=== PATIENT | female | born 1955 | race Hispanic/Latino ===

== ENCOUNTER 2017-08-09 10:52 | Emergency (ER) | payer BC ==
[2017-08-09 11:02] VITALS: BP 164/76
[2017-08-09 14:31] LABS: Bacteria,Urine 1+ /HPF (Negative); Bilirubin,Urine NEG (Negative); Blood,Urine LG (Negative); Color,Urine Yellow (Yellow); Nitrite,Urine NEG (Negative); Urobilinogen,Urine < 2.0 mg/dL (<2.0)
[2017-08-09 14:32] LABS: RBC,Urine > 182.0 /HPF (0.0-6.0); WBC,Urine > 182.0 /HPF (0.0-6.0)
[2017-08-09] MEDS ORDERED: ROCEPHIN IM ONE (15:03)
[2017-08-09] MEDS ORDERED: XYLOCAINE 1% MPF 5 mL INFILTRATI ONE (15:03)
--- NOTE | 2017-08-09 15:21 | Emergency Department Report ---
ED Female HPI - General Chief complaint: Urogenital-Female Stated complaint: BLOOD IN URINE Time Seen by Provider: 08/09/17 14:02 Source: patient Mode of arrival: Ambulatory Limitations: No Limitations - History of Present Illness Initial comments: This is a 62-year-old female nontoxic, well nourished in appearance, no acute signs of distress presents to the ED with c/o of dysuria, polyuria and hematuria x1 week. Patient denies any back pain, shortness of breath, fever, chills, nausea, vomiting, chest pain, headache, stiff neck. Patient denies any abdominal pain or pelvic pain. Patient states allergies to sulfa and denies past medical history. MD Complaint: dysuria, other (hematuria) -: week(s) (1) Severity: mild Severity scale (0 -10): 8 Quality: burning Consistency: constant Improves with: none Worsens with: urination Are you Now?: No Associated Symptoms: dysuria, hematuria. denies: vaginal discharge, vaginal bleeding, abdominal pain, nausea/vomiting, fever/chills, headaches, loss of appetite, rash, seizure, shortness of breath, syncope, weakness - Related Data Sexually active: Yes Previous Rx's Medication Instructions Recorded Last Taken Type Nitrofurantoin [place]/M-Cryst 100 mg PO Q12HR #14 capsule 08/09/17 Unknown Rx [Macrobid CAP] Allergies Allergy/AdvReac Type Severity Reaction Status Date / Time Sulfa (Sulfonamide AdvReac Unknown Verified 08/09/17 11:02 Antibiotics) ED Review of Systems ROS: Stated complaint: BLOOD IN URINE Other details as noted in HPI Constitutional: denies: chills, fever Eyes: denies: eye pain, eye discharge, vision change ENT: denies: ear pain, throat pain Respiratory: denies: cough, shortness of breath, wheezing Cardiovascular: denies: chest pain, palpitations Endocrine: no symptoms reported Gastrointestinal: denies: abdominal pain, nausea, diarrhea Genitourinary: urgency, dysuria, frequency, hematuria. denies: discharge Musculoskeletal: denies: back pain, joint swelling, arthralgia Skin: denies: rash, lesions Neurological: denies: headache, weakness, paresthesias Psychiatric: denies: anxiety, depression Hematological/Lymphatic: denies: easy bleeding, easy bruising ED Past Medical Hx - Past Medical History Previous Medical History?: No - Surgical History Past Surgical History?: Yes Additional Surgical History: , left arm breast biopsy - Social History Smoking Status: Never Smoker Substance Use Type: Alcohol - Medications Home Medications: Home Medications Medication Instructions Recorded Confirmed Last Taken Type Nitrofurantoin [place]/M-Cryst 100 mg PO Q12HR #14 capsule 08/09/17 Unknown Rx [Macrobid CAP] ED Physical Exam - General Limitations: No Limitations General appearance: alert, in no apparent distress - Head Head exam: Present: atraumatic, normocephalic - Eye Eye exam: Present: normal appearance, PERRL Pupils: Present: normal accommodation - ENT ENT exam: Present: normal exam, normal orophraynx, mucous membranes moist, TM's normal bilaterally, normal external ear exam - Neck Neck exam: Present: normal inspection, full ROM. Absent: tenderness, meningismus, lymphadenopathy, thyromegaly - Respiratory Respiratory exam: Present: normal lung sounds bilaterally. Absent: respiratory distress, wheezes, rales, rhonchi, stridor, chest wall tenderness, accessory muscle use, decreased breath sounds, prolonged expiratory - Cardiovascular Cardiovascular Exam: Present: regular rate, normal rhythm, normal heart sounds. Absent: irregular rhythm, systolic murmur, diastolic murmur, rubs, gallop - GI/Abdominal GI/Abdominal exam: Present: soft, normal bowel sounds. Absent: distended, tenderness, guarding, rebound, rigid, diminished bowel sounds - Rectal Rectal exam: Present: deferred - Extremities Exam Extremities exam: Present: normal inspection - Back Exam Back exam: Present: normal inspection, full ROM. Absent: tenderness, CVA tenderness (R), CVA tenderness (L), muscle spasm, paraspinal tenderness, vertebral tenderness, rash noted - Neurological Exam Neurological exam: Present: alert, oriented X3, CN II-XII intact, normal gait, reflexes normal - Psychiatric Psychiatric exam: Present: normal affect, normal mood - Skin Skin exam: Present: warm, dry, intact, normal color. Absent: rash ED Course Vital Signs 08/09/17 10:57 Temperature 97.4 F L Pulse Rate 70 Respiratory 16 Rate Blood Pressure 164/76 O2 Sat by Pulse 100 Oximetry - Reevaluation(s) Reevaluation #1: 08/09/17 15:20 Patient is speaking in full sentences with no signs of distress noted. ED Medical Decision Making - Medical Decision Making This is a 62-year-old female that presents with urinary tract infection. Patient stable and was examined by me. UA obtained with elevated WBCs leukocytes and RBCs. Patient received Rocephin 1 g in the ED. Patient is discharged with Macrobid for 7 days. There is no CVA tenderness. No signs or symptoms of pyelonephritis. Patient was instructed Follow-up with a primary care doctor in 3-5 days or if symptoms worsen and continue return to emergency room as soon as possible. At time time of discharge, the patient does not seem toxic or ill in appearance. No acute signs of distress noted. Patient agrees to discharge treatment plan of care. No further questions noted by the patient. Critical care attestation.: If time is entered above; I have spent that time in minutes in the direct care of this critically ill patient, excluding procedure time. ED Disposition Clinical Impression: Urinary tract infection Qualifiers: Urinary tract infection type: site unspecified Hematuria presence: with hematuria Qualified Code(s): N39.0 - Urinary tract infection, site not specified ; R31.9 - Hematuria, unspecified; R31.9 - Hematuria, unspecified Disposition: DC-01 TO HOME OR SELFCARE Is pt being admited?: No Does the pt Need Aspirin: No Condition: Stable Instructions: Urinary Tract Infection in Women (ED), Nitrofurantoin Combination (By mouth) Additional Instructions: Follow-up with a primary care doctor in 3-5 days or if symptoms worsen and continue return to emergency room as soon as possible. Prescriptions: Nitrofurantoin [place]/M-Cryst [Macrobid CAP] 100 mg PO Q12HR #14 capsule Referrals: ANGELICA ABBOTT MD [Primary Care Provider] - 3-5 Days IMAN WALSH MD [Staff Physician] - 3-5 Days [facility] [Outside] - 3-5 Days [facility] [Outside] - 3-5 Days Forms: Work/School Release Form(ED)
== END 2017-08-09 15:00 | disposition home or self-care (01) ==
LOC: ED 10:52
DX: N39.0 Urinary tract infection, site not specified (principal); R31.9 Hematuria, unspecified; Z88.2 Allergy status to sulfonamides
CPT/HCPCS: 81001; 96372; 99283; J0696

== ENCOUNTER 2018-09-16 09:06 | Outpatient (CLI) | payer BC ==
--- NOTE | 2018-09-16 10:06 | Mammography Report ---
Bilateral mammogram: Compared to 03/06/16 and 03/28/13.. CAD study utilized. Findings: 6 glandular parenchyma bilaterally. Benign densities right and left breast without significant interval change. No microcalcification. Benign axillary nodes. Impression: Benign findings. Annual followup recommended. BI-RADS CATEGORY: 2 = Benign ACR BI-RADS MAMMOGRAPHIC CODES: 0 = Needs additional imaging evaluation; 1 = Negative; 2 = Benign; 3 = Probably benign; 4 = Suspicious; 5 = Malignant; 6 = Known biopsy-proven malignancy COMMENT: 1. Dense breast tissue, i.e., adenosis, fibrocystic changes, etc., may obscure an underlying neoplasm. 2. Approximately 10% of cancers are not detected with mammography. 3. A negative mammography report should not delay biopsy if a clinically suspicious mass is present. COMMENT: Patient follow-up letters are generated in [employer] No
== END 2018-09-16 09:07 | disposition home or self-care (01) ==
LOC: SPVWC 09:06
PROVIDERS: ATTEND Family Medicine
DX: Z12.31 Encounter for screening mammogram for malignant neoplasm of breast (principal)
CPT/HCPCS: 77067

== ENCOUNTER 2019-09-18 09:50 | Outpatient (CLI) | payer BC ==
--- NOTE | 2019-09-18 13:48 | Mammography Report ---
DIGITAL SCREENING MAMMOGRAM WITH CAD, 09/18/2019 INDICATION: Routine screening mammography. TECHNIQUE: Digital bilateral 2D mammography was obtained in the craniocaudal and mediolateral obliq ue projections. This examination was interpreted with the benefit of Computer-Aided Detection analysi s. COMPARISON: 09/16/2018 and 03/06/2016 FINDINGS: Breast Density: The breasts are heterogeneously dense, which may obscure small masses. There is no evidence of new mass, suspicious calcifications or architectural distortion in either gurinder ast. Scattered bilateral benign calcifications. Bilateral circumscribed densities are unchanged kahlil red to previous exams. IMPRESSION: No mammographic evidence of malignancy. Follow up recommendation: Routine yearly BI-RADS Category 2: Benign. A "normal" or negative report should not discourage follow up or biopsy of a clinically significant f inding. A written summary of these findings will be mailed to the patient. The patient will be entered into a mammography reporting system which will generate a reminder letter for the patient's next appointmen t at the appropriate interval. The [employer] recommends yearly mammograms starting at age 40 and continuing as l paola as a woman is in good health. Breast MRI is recommended for women with an approximate 20-25% or greater lifetime risk of breast cancer, including women with a strong family history of breast or ova suman cancer or who have been treated for Hodgkin's disease. Signer Name: Jean-Paul Pires MD Signed: 09/18/2019 1:44 PM Workstation Name: [id number]
== END 2019-09-18 09:51 | disposition home or self-care (01) ==
LOC: SPVWC 09:50
PROVIDERS: ATTEND Family Medicine
DX: Z12.31 Encounter for screening mammogram for malignant neoplasm of breast (principal)
CPT/HCPCS: 77067

== ENCOUNTER 2020-10-04 09:57 | Outpatient (CLI) | payer BC ==
--- NOTE | 2020-10-04 12:04 | Mammography Report ---
DIGITAL SCREENING MAMMOGRAM WITH CAD, 10/04/2020 CLINICAL INFORMATION / INDICATION: Routine screening mammography. TECHNIQUE: Digital bilateral 2D mammography was obtained in the craniocaudal and mediolateral obliqu e projections. This examination was interpreted with the benefit of Computer-Aided Detection analysis . COMPARISON: 09/18/2019 FINDINGS: Breast Density: The breasts are heterogeneously dense, which may obscure small masses. No dominant mass, suspicious calcifications, or architectural distortion in either breast. Stable bilateral nodularity. Bilateral benign scattered calcifications. Overall, no significant inter caroline change. IMPRESSION: No mammographic evidence of malignancy. Follow up recommendation: Routine yearly BI-RADS Category 2: Benign. A "normal" or negative report should not discourage follow up or biopsy of a clinically significant f inding. A written summary of these findings will be mailed to the patient. The patient will be entered into a mammography reporting system which will generate a reminder letter for the patient's next appointmen t at the appropriate interval. The [employer] recommends yearly mammograms starting at age 40 and continuing as l paola as a woman is in good health. Breast MRI is recommended for women with an approximate 20-25% or greater lifetime risk of breast cancer, including women with a strong family history of breast or ova suman cancer or who have been treated for Hodgkin's disease. Signer Name: Lisa Farmer MD Signed: 10/04/2020 12:00 PM Workstation Name: [id number]
== END 2020-10-04 09:58 | disposition home or self-care (01) ==
LOC: SPVWC 09:57
PROVIDERS: ATTEND Family Medicine
DX: Z12.31 Encounter for screening mammogram for malignant neoplasm of breast (principal); N64.89 Other specified disorders of breast
CPT/HCPCS: 77067

== ENCOUNTER 2021-03-19 10:13 | Outpatient (CLI) | payer BC ==
--- NOTE | 2021-03-19 11:42 | Mammography Report ---
LEFT DIGITAL DIAGNOSTIC MAMMOGRAM WITH CAD , 03/19/2021 LEFT LIMITED BREAST ULTRASOUND CLINICAL INFORMATION / INDICATION: Patient is palpating a lump in the left breast, lower outer quadra nt TECHNIQUE: Digital left mammographic imaging was performed. Limited ultrasound was performed. This ex amination was interpreted with the benefit of Computer-Aided Detection (CAD) analysis. COMPARISON: Prior mammograms including 09/16/2018, 10/04/2020 FINDINGS: Breast Density: The breasts are heterogeneously dense, which may obscure small masses. MAMMOGRAPHIC FINDINGS: No dominant mass, suspicious calcifications, or architectural distortion in th e left breast. Postsurgical scars noted upper outer quadrant. There are few benign scattered calcific ations throughout the breast. Overall I do not see interval change. There is no mammographic correlat e for the palpable lump. ULTRASOUND FINDINGS: Targeted ultrasound evaluation was performed of the area of interest. Sonograp hic evaluation of the palpable area in the left lower outer breast, 5:00 region, does not demonstrate any sonographic abnormality. There is no visible solid mass, cyst, or suspicious area of shadowing. IMPRESSION: No mammographic or sonographic evidence of malignancy in the left breast. No mammographic or sonographic correlate for the complaint of a palpable left breast lump. Please correlate clinical ly. If palpable lump is felt to be clinically significant, MRI could also be performed for additional evaluation. Follow up recommendation: Routine yearly BI-RADS Category 2: Benign. A "normal" or negative report should not discourage follow up or biopsy of a clinically significant f inding. A written summary of these findings will be mailed to the patient. The patient will be entered into a mammography reporting system which will generate a reminder letter for the patient's next appointmen t at the appropriate interval. According to the [employer], yearly mammograms are recommended starting at age 40 and continuing as long as a woman is in good health. Breast MRI is recommended for women with an francoise roximately 20-25% or greater lifetime risk of breast cancer, including women with a strong family his tory of breast or ovarian cancer and women who have been treated for Hodgkin's disease. Signer Name: Lisa Farmer MD Signed: 03/19/2021 11:37 AM Workstation Name: [id number]
--- NOTE | 2021-03-20 09:27 | Mammography Report ---
DEXA BONE DENSITY SCAN INDICATION / CLINICAL INFORMATION: OTHER SPECIFIED DISORDERS OF BONE DENSITY M85.80. 65 years Female COMPARISON: None available. LUMBAR SPINE, L1-L4: - Bone mineral density (BMD) = 1.020 g/cm2. - T-score = -0.2 - Z-score = 1.4 Change (%) since most recent prior (if available): None available. LEFT HIP, : - Bone mineral density (BMD) = 0.729 g/cm2. - T-score = -1.1 - Z-score = 0.4 Change (%) since most recent prior (if available): None available. IMPRESSION: 1. WHO Classification: Osteopenia. Fracture Risk: Increased. Note: 10-Year Fracture Risk (FRAX) not reported. This DEXA unit lacks FRAX functionality. BMD Reporting Guidelines (ISCD, 2015) BMD Reporting in Postmenopausal Women and in Men Age 50 and Older - T-scores are preferred. - The WHO densitometric classification is applicable. BMD Reporting in Females Prior to Menopause and in Males Younger Than Age 50 - Z-scores, not T-scores, are preferred. This is particularly important in children. - A Z-score of -2.0 or lower is defined as below the expected range for age, and a Z-score above -2.0 is within the expected range for age. - Osteoporosis cannot be diagnosed in men under age 50 on the basis of BMD alone. - The WHO diagnostic criteria may be applied to women in the menopausal transition. http://www.iscd.org/official-positions/1670-xfxs-wtufbzfn-positions-adult/ Signer Name: Redd Gill MD Signed: 03/20/2021 9:23 AM Workstation Name: [id number]
== END 2021-03-19 10:14 | disposition home or self-care (01) ==
LOC: SPVWC 10:13
PROVIDERS: ATTEND Obstetrics & Gynecology Gynecology
DX: N64.89 Other specified disorders of breast (principal); M85.88 Other specified disorders of bone density and structure, other site; N63.20 Unspecified lump in the left breast, unspecified quadrant; M85.80 Other specified disorders of bone density and structure, unspecified site
CPT/HCPCS: 77080